=== PATIENT | female | born 1995 | race Caucasian/White ===

== ENCOUNTER 2017-06-20 02:12 | Inpatient (IN) | payer BC ==
[2017-06-20 03:18] LABS: Hematocrit 44 % (35-47); Hemoglobin 14.5 g/dl (12.0-16.0); Mean Corpuscular HGB Conc 33 g/dl (31-36); Mean Corpuscular Hemoglobin 30 pg (27-31); Mean Corpuscular Volume 89 fL (80-97); Mean Platelet Volume 7 um3 (7.4-10.4); Red Blood Count 4.91 10^6/ul (4.0-5.4); Red Cell Distribution Width 12 % (10.5-15); White Blood Count 9.4 10^3/ul (3.5-10.8)
[2017-06-20 03:27] LABS: Urine Bacteria Absent (Absent); Urine Bilirubin Negative (Negative); Urine Glucose Negative (Negative); Urine Nitrite Negative (Negative)
[2017-06-20 03:37] LABS: ALT 7 U/L (7-52); AST 16 U/L (13-39); Albumin 4.4 g/dL (3.2-5.2); Alkaline Phosphatase 40 U/L (34-104); Anion Gap 9 mmol/L (2-11); BUN/Creatinine Ratio 16.1 (8-20); Blood Urea Nitrogen 9 mg/dL (6-24); CO2 Carbon Dioxide 21 mmol/L (22-32); Chloride 109 mmol/L (101-111); EGFR African American 172.5 (>60); EGFR Non-African American 134.2 (>60); Globulin 2.9 g/dL (2-4); Glucose 91 mg/dL (70-100); Potassium 3.9 mmol/L (3.5-5.0); Sodium 139 mmol/L (133-145); Total Protein 7.3 g/dL (6.4-8.9)
[2017-06-20 03:40] LABS: Benzodiazepine Urine Screen None Detected (None Detect)
[2017-06-20 03:42] LABS: Acetaminophen < 15 mcg/mL; Alcohol 102 mg/dL (<10); Salicylate < 2.50 mg/dL (<30)
[2017-06-20 03:53] LABS: TSH (Thyroid Stimulating Horm) 1.15 mcIU/mL (0.34-5.60)
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
[2017-06-20] MEDS ORDERED: Acetaminophen TAB* 325 MG PO PRN (08:37)
[2017-06-20] MEDS ORDERED: Al Hydrox/Mg Hydrox/Simet LIQ* 30 ML UDC PO PRN (08:37)
[2017-06-20] MEDS ORDERED: BuPROPion XL* 150 MG TAB.XL PO SCH (09:00)
[2017-06-20] MEDS: Omeprazole CAP* 20 MG PO SCH (09:33)
[2017-06-20] MEDS: Vitamin THERAPEUTIC TAB PO SCH (09:33)
[2017-06-20] MEDS: LEVONORGESTREL ETH ESTRAD PO SCH (14:27)
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
[2017-06-21] MEDS: LEVONORGESTREL ETH ESTRAD PO SCH (07:55)
[2017-06-21] MEDS: Vitamin THERAPEUTIC TAB PO SCH (07:55)
[2017-06-21] MEDS: Omeprazole CAP* 20 MG PO SCH (07:56)
[2017-06-21] MEDS: Sucralfate TAB* 1 GM PO PRN ×2 (07:58→16:13)
[2017-06-21] MEDS ORDERED: BuPROPion XL* 150 MG TAB.XL PO SCH (09:00)
--- NOTE | 2017-06-21 15:10 | PN ---
Subjective - Subjective Subjective: Torie endorses reduced distress level, improving mood, some difficulty staying asleep last night. She continues to have difficulty eating, has been drinking Ensure; she agrees to trying Zofran 1 hour before meal, new trial of Mirtazapine and gradual discontinuation of the Buproprion. She describes positive interactions with bother and father. She remains anxious about the legal implications of her DUI. She expresses interest in referral for outpatient substance abuse treatment. Per staff, she is adherent to unit's routines. Objective - Appearance Appearance: Healthy Appearing Dysmorphic Features: No Hygiene: Normal Grooming: Well Kept - Behavior Psychomotor Activities: Normal Exhibits Abnormal Movement: No - Attitude and Relatedness Attitude and Relatedness: Cooperative Eye Contact: Fair - Speech Quality: Unpressured Latencies: Normal Quantity: Appropriate - Mood Patient's Decription of Mood: better - Affect Observed Affect: Constricted Affect Consistent with: Dysphoria - Thought Process Patient's Thought Process: Coherent, Goal Directed Thought Content: No Passive Wish, No Suicidal Planning, No Homicidal Ideation, No Paranoid Ideation - Sensorium Experiencing Hallucinations: No, Sensorium is Clear - Level of Consciousness Level of Consciousness: Alert Orientation: Yes Intact - Impulse Control Impulse Control: Intact - Insight and Judgement Insight and Judgement: Fair - Group Participation Particating in Group Activities: Yes - Medication Management Medication Management Adherence: Yes Assessment - Assessment Merits Inpatient Hospitalization: For Ongoing Evaluation, Consolidate Improvements, For Discharge Planning Inpatient DSM-IV Dx: Alcohol-cannabis use disorder; Cluster B traits. Clinical Impression: Adjusting well to this setting, with lower distress level, improving mood, denying suicidality, consented to new trial of Remeron and to discontinuation of the Buproprion. She needs continue admission for stabilization. Plan - Plan Treatment Plan: Name: TORIE CARDONA Birthdate: 1995 [id number] Medications: Current Medications Acetaminophen (Tylenol Tab*) 650 mg PO Q4H PRN PRN Reason: PAIN or TEMP > 101 F Al Hydrox/Mg Hydrox/Simethicone (Maalox Plus*) 30 ml PO Q4H PRN PRN Reason: INDIGESTION Levonorgestrel (Quasense (Nf)) 1 tab PO DAILY [facility] Last Admin: 06/21/17 07:55 Dose: 1 tab Mirtazapine (Remeron Tab*) 15 mg PO BEDTIME [facility] Multivitamins (Theragran Tab*) 1 tab PO DAILY [facility] Last Admin: 06/21/17 07:55 Dose: 1 tab Omeprazole (Prilosec Cap*) 20 mg PO DAILY [facility] Last Admin: 06/21/17 07:56 Dose: 20 mg Ondansetron HCl (Zofran Tab*) 4 mg PO Q6H PRN PRN Reason: NAUSEA Sucralfate (Carafate*) 1 gm PO QID PRN PRN Reason: HEARTBURN Last Admin: 06/21/17 07:58 Dose: 1 gm - Discharge Plan Discharge Plan: Drug/Alcohol Rehab Outpatient Program: TBD
[2017-06-21] MEDS: Ondansetron TAB* 4 MG PO PRN (16:13)
[2017-06-21] MEDS: Mirtazapine TAB* 15 MG PO SCH (21:01)
[2017-06-22] MEDS ORDERED: buPROPion TAB* 75 MG PO SCH (09:00)
[2017-06-22] MEDS: Omeprazole CAP* 20 MG PO SCH (09:17)
[2017-06-22] MEDS: Vitamin THERAPEUTIC TAB PO SCH (09:17)
[2017-06-22] MEDS: Sucralfate TAB* 1 GM PO PRN (09:17)
[2017-06-22] MEDS: LEVONORGESTREL ETH ESTRAD PO SCH (09:18)
--- NOTE | 2017-06-22 12:21 | PN ---
Subjective - Subjective Subjective: Torie endorses improvements in her sleep and mood, she denies alcohol withdrawal symptoms, suicidal ideation, urges for sib or side effects from prescribed medication. She continues to not be able to eat solid foods despite Zofran prn and Remeron. She describes continued positive interactions with relatives. MMPI shows elevations on the neurotic triad and paranoia scale. Per staff, she is adherent to unit's routines. Objective - Appearance Appearance: Thin Framed Dysmorphic Features: No Hygiene: Normal Grooming: Well Kept - Behavior Psychomotor Activities: Normal Exhibits Abnormal Movement: No - Attitude and Relatedness Attitude and Relatedness: Superficially Cooperative - Speech Quality: Unpressured Latencies: Normal Quantity: Appropriate - Mood Patient's Decription of Mood: better - Affect Observed Affect: Constricted Affect Consistent with: Dysphoria - Thought Process Patient's Thought Process: Coherent, Goal Directed Thought Content: No Passive Wish, No Suicidal Planning, No Homicidal Ideation, No Paranoid Ideation - Sensorium Experiencing Hallucinations: No, Sensorium is Clear - Level of Consciousness Level of Consciousness: Alert Orientation: Yes Intact - Impulse Control Impulse Control: Intact - Insight and Judgement Insight and Judgement: Poor - Group Participation Particating in Group Activities: Yes - Medication Management Medication Management Adherence: Yes Assessment - Assessment Merits Inpatient Hospitalization: Consolidate Improvements, For Discharge Planning Inpatient DSM-IV Dx: Major depressive disorder, recurrent, moderate, w/o psychotic features; Alcohol-cannabis use disorder; Cluster B traits. Clinical Impression: Reporting lower distress level, improving sleep and mood, denying suicidality, tolerating trial of Remeron and discontinuation of the Buproprion. She needs continue admission for stabilization. Plan - Plan Treatment Plan: Name: TORIE CARDONA Birthdate: 1995 [id number] Medications: Current Medications Acetaminophen (Tylenol Tab*) 650 mg PO Q4H PRN PRN Reason: PAIN or TEMP > 101 F Al Hydrox/Mg Hydrox/Simethicone (Maalox Plus*) 30 ml PO Q4H PRN PRN Reason: INDIGESTION Bupropion HCl (Wellbutrin Tab*) 75 mg PO DAILY [facility] Last Admin: 06/22/17 09:17 Dose: 75 mg Levonorgestrel (Quasense (Nf)) 1 tab PO DAILY [facility] Last Admin: 06/22/17 09:18 Dose: 1 tab Mirtazapine (Remeron Tab*) 15 mg PO BEDTIME [facility] Last Admin: 06/21/17 21:01 Dose: 15 mg Multivitamins (Theragran Tab*) 1 tab PO DAILY [facility] Last Admin: 06/22/17 09:17 Dose: 1 tab Omeprazole (Prilosec Cap*) 20 mg PO DAILY [facility] Last Admin: 06/22/17 09:17 Dose: 20 mg Ondansetron HCl (Zofran Tab*) 4 mg PO Q6H PRN PRN Reason: NAUSEA Last Admin: 06/21/17 16:13 Dose: 4 mg Sucralfate (Carafate*) 1 gm PO QID PRN PRN Reason: HEARTBURN Last Admin: 06/22/17 09:17 Dose: 1 gm - Discharge Plan Discharge Plan: Drug/Alcohol Rehab Outpatient Program: [facility]
--- NOTE | 2017-06-22 13:14 | PN ---
[facility]: Group Therapy Note - Service Type Service Type: [id number] Group Psychotherapy - Cognitive Behavioral Group Therapy ( CBT):Patient was attentive and participatory in CBT programming this morning, and remained in good behavioral control. Patient expressed positive insights regarding relevant treatment interventions and goals.
[2017-06-22] MEDS: Ondansetron TAB* 4 MG PO PRN (16:14)
[2017-06-22] MEDS: Mirtazapine TAB* 15 MG PO SCH (21:13)
[2017-06-23] MEDS: Omeprazole CAP* 20 MG PO SCH (08:35)
[2017-06-23] MEDS: Vitamin THERAPEUTIC TAB PO SCH (08:35)
[2017-06-23] MEDS: Ondansetron TAB* 4 MG PO PRN ×2 (08:35→17:16)
[2017-06-23] MEDS: LEVONORGESTREL ETH ESTRAD PO SCH (08:35)
[2017-06-23] MEDS: Sucralfate TAB* 1 GM PO PRN ×2 (08:37→21:24)
--- NOTE | 2017-06-23 12:38 | PN ---
Subjective - Subjective Subjective: Torie complains of poor sleep last night and feeling tired, irritable and depressed today. She expresses irritation that her mother brought the wrong type of clothes and has been requesting a family meeting. She was able to eat pear and apple pie yesterday, continues to feel nauseous after eating but has not thrown up. She denies alcohol withdrawal symptoms, suicidal ideation, urges for sib or side effects from prescribed medication. She remains motivated for outpatient psychiatric treatment but now seems to minimize her issues with substances or the need for outpatient treatment. Per staff, she is adherent to unit's routines. Objective - Appearance Appearance: Healthy Appearing Dysmorphic Features: No Hygiene: Normal Grooming: Well Kept - Behavior Psychomotor Activities: Normal Exhibits Abnormal Movement: No - Attitude and Relatedness Attitude and Relatedness: Cooperative Eye Contact: Fair - Speech Quality: Unpressured Latencies: Normal Quantity: Appropriate - Mood Patient's Decription of Mood: "Irritable" - Affect Observed Affect: Non-labile Affect Consistent with: Dysphoria - Thought Process Patient's Thought Process: Coherent, Goal Directed Thought Content: No Passive Wish, No Suicidal Planning, No Homicidal Ideation, No Paranoid Ideation - Sensorium Experiencing Hallucinations: No, Sensorium is Clear - Level of Consciousness Level of Consciousness: Alert Orientation: Yes Intact - Impulse Control Impulse Control: Intact - Insight and Judgement Insight and Judgement: Poor - Group Participation Particating in Group Activities: Yes - Medication Management Medication Management Adherence: Yes Assessment - Assessment Merits Inpatient Hospitalization: Consolidate Improvements, For Discharge Planning Inpatient DSM-IV Dx: Major depressive disorder, recurrent, moderate, w/o psychotic features; Alcohol-cannabis use disorder; Cluster B traits. Clinical Impression: Uneven course here, denying suicidality, tolerating trial of Remeron and discontinuation of the Buproprion. She needs continue admission for stabilization. Plan - Plan Treatment Plan: Name: TORIE CARDONA Birthdate: 1995 [id number] Medications: Current Medications Acetaminophen (Tylenol Tab*) 650 mg PO Q4H PRN PRN Reason: PAIN or TEMP > 101 F Al Hydrox/Mg Hydrox/Simethicone (Maalox Plus*) 30 ml PO Q4H PRN PRN Reason: INDIGESTION Levonorgestrel (Quasense (Nf)) 1 tab PO DAILY [facility] Last Admin: 06/23/17 08:35 Dose: 1 tab Mirtazapine (Remeron Tab*) 15 mg PO BEDTIME [facility] Last Admin: 06/22/17 21:13 Dose: 15 mg Multivitamins (Theragran Tab*) 1 tab PO DAILY [facility] Last Admin: 06/23/17 08:35 Dose: 1 tab Omeprazole (Prilosec Cap*) 20 mg PO DAILY [facility] Last Admin: 06/23/17 08:35 Dose: 20 mg Ondansetron HCl (Zofran Tab*) 4 mg PO Q6H PRN PRN Reason: NAUSEA Last Admin: 06/23/17 08:35 Dose: 4 mg Sucralfate (Carafate*) 1 gm PO QID PRN PRN Reason: HEARTBURN Last Admin: 06/23/17 08:37 Dose: 1 gm - Discharge Plan Discharge Plan: Outpatient Follow Up Outpatient Program: [facility]
--- NOTE | 2017-06-23 13:11 | PN ---
MHU: Group Therapy Note - Service Type Service Type: [id number] Group Psychotherapy - Cognitive Behavioral Group Therapy ( CBT):Patient was attentive and participatory in CBT programming this morning, and remained in good behavioral control. Patient expressed positive insights regarding relevant treatment interventions and goals.
[2017-06-23] MEDS: Mirtazapine TAB* 15 MG PO SCH (21:22)
[2017-06-24] MEDS: Vitamin THERAPEUTIC TAB PO SCH (09:54)
[2017-06-24] MEDS: Omeprazole CAP* 20 MG PO SCH (09:54)
[2017-06-24] MEDS: LEVONORGESTREL ETH ESTRAD PO SCH (09:54)
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
[2017-06-24] MEDS: Sucralfate TAB* 1 GM PO PRN (16:13)
[2017-06-24] MEDS: Ondansetron TAB* 4 MG PO PRN (16:13)
[2017-06-24] MEDS: Mirtazapine TAB* 15 MG PO SCH (22:10)
[2017-06-25] MEDS: Sucralfate TAB* 1 GM PO PRN ×4 (08:01→21:56)
[2017-06-25] MEDS: Vitamin THERAPEUTIC TAB PO SCH (08:02)
[2017-06-25] MEDS: LEVONORGESTREL ETH ESTRAD PO SCH (08:02)
[2017-06-25] MEDS: Omeprazole CAP* 20 MG PO SCH (08:02)
[2017-06-25] MEDS: Ondansetron TAB* 4 MG PO PRN ×2 (08:03→16:59)
--- NOTE | 2017-06-25 13:57 | PN ---
MHU: Group Therapy Note - Service Type Service Type: [id number] Group Psychotherapy - Cognitive Behavioral Group Therapy ( CBT):Patient was attentive and participatory in CBT programming this morning, and remained in good behavioral control. Patient expressed positive insights regarding relevant treatment interventions and goals.
--- NOTE | 2017-06-25 17:46 | PN ---
Subjective - Subjective Subjective: Presents with brighter affect, smiles easily, endorses improving mood, restful sleep, denies drug withdrawal symptoms or side effects from prescribed meds. Per staff, she is visible in the milieu and engaged in programing. In family meeting changes her mind about door to door transfer to rehab and demands immediate discharge home. Was overheard crying loudly, told parents she felt like punching a wall. Objective - Appearance Appearance: Thin Framed Dysmorphic Features: No Hygiene: Normal Grooming: Well Kept - Behavior Motor Skills: Fine Motor Skills: Normal, Gross Motor Skills: Normal, Gait: Normal Psychomotor Activities: Normal Exhibits Abnormal Movement: No - Attitude and Relatedness Attitude and Relatedness: Superficially Cooperative Eye Contact: Fair - Speech Quality: Unpressured Latencies: Normal Quantity: Terse - Mood Patient's Decription of Mood: "Okay" - Affect Observed Affect: Fair Affect Consistent with: Euthymia - Thought Process Patient's Thought Process: Coherent, Goal Directed Thought Content: No Passive Wish, No Suicidal Planning, No Homicidal Ideation, No Paranoid Ideation - Sensorium Delusions: No Experiencing Hallucinations: No, Sensorium is Clear - Level of Consciousness Level of Consciousness: Alert Orientation: Yes Intact - Impulse Control Impulse Control: Intact - Insight and Judgement Insight and Judgement: Poor Assessment - Assessment Merits Inpatient Hospitalization: Consolidate Improvements, For Discharge Planning Inpatient DSM-IV Dx: Major depressive disorder, recurrent, moderate, w/o psychotic features; Alcohol-cannabis use disorder; Cluster B traits. Plan - Treatment Plan Level of Observation: 15 Minute Checks, Full Code Status Medications: Current Medications Acetaminophen (Tylenol Tab*) 650 mg PO Q4H PRN PRN Reason: PAIN or TEMP > 101 F Al Hydrox/Mg Hydrox/Simethicone (Maalox Plus*) 30 ml PO Q4H PRN PRN Reason: INDIGESTION Levonorgestrel (Quasense (Nf)) 1 tab PO DAILY [facility] Last Admin: 06/25/17 08:02 Dose: 1 tab Mirtazapine (Remeron Tab*) 30 mg PO BEDTIME [facility] Last Admin: 06/24/17 22:10 Dose: 30 mg Multivitamins (Theragran Tab*) 1 tab PO DAILY [facility] Last Admin: 06/25/17 08:02 Dose: 1 tab Omeprazole (Prilosec Cap*) 20 mg PO DAILY [facility] Last Admin: 06/25/17 08:02 Dose: 20 mg Ondansetron HCl (Zofran Tab*) 4 mg PO Q6H PRN PRN Reason: NAUSEA Last Admin: 06/25/17 16:59 Dose: 4 mg Sucralfate (Carafate*) 1 gm PO QID PRN PRN Reason: HEARTBURN Last Admin: 06/25/17 16:59 Dose: 1 gm - Discharge Plan Discharge Plan: Drug/Alcohol Rehab
--- NOTE | 2017-06-25 17:49 | PN ---
Subjective - Subjective Subjective: Presents with brighter affect, smiles easily, endorses improving mood, restful sleep, denies drug withdrawal symptoms or side effects from prescribed meds. Per staff, she is visible in the milieu and engaged in programing. In family meeting changes her mind about door to door transfer to rehab and demands immediate discharge home. Was overheard crying loudly, told parents she felt like punching a wall. Objective - Appearance Appearance: Thin Framed Dysmorphic Features: No Hygiene: Normal Grooming: Well Kept - Behavior Psychomotor Activities: Normal Exhibits Abnormal Movement: No - Attitude and Relatedness Attitude and Relatedness: Superficially Cooperative Eye Contact: Fair - Speech Quality: Unpressured Latencies: Normal Quantity: Appropriate - Mood Patient's Decription of Mood: "Okay" - Affect Observed Affect: Fair Affect Consistent with: Euthymia - Thought Process Patient's Thought Process: Coherent, Goal Directed Thought Content: No Passive Wish, No Suicidal Planning, No Homicidal Ideation, No Paranoid Ideation - Sensorium Experiencing Hallucinations: No, Sensorium is Clear - Level of Consciousness Level of Consciousness: Alert Orientation: Yes Intact - Impulse Control Impulse Control: Intact - Insight and Judgement Insight and Judgement: Poor - Group Participation Particating in Group Activities: Yes - Medication Management Medication Management Adherence: Yes Assessment - Assessment Merits Inpatient Hospitalization: Consolidate Improvements, For Discharge Planning Inpatient DSM-IV Dx: Major depressive disorder, recurrent, moderate, w/o psychotic features; Alcohol-cannabis use disorder; Cluster B traits. Clinical Impression: Stabilizing in this structured setting, has progressed well through alcohol detox, tolerating trial of Remeron with improved sleep and appetite, now ambivalent about inpatient rehab. I suspect some craving for alcohol and drugs. Patient would be at high risk for relapse on alcohol and drugs if discharged. Plan - Plan Treatment Plan: Name: SERGIO CARDONA Birthdate: 1995 [id number] Medications: Current Medications Acetaminophen (Tylenol Tab*) 650 mg PO Q4H PRN PRN Reason: PAIN or TEMP > 101 F Al Hydrox/Mg Hydrox/Simethicone (Maalox Plus*) 30 ml PO Q4H PRN PRN Reason: INDIGESTION Levonorgestrel (Quasense (Nf)) 1 tab PO DAILY [facility] Last Admin: 06/25/17 08:02 Dose: 1 tab Mirtazapine (Remeron Tab*) 30 mg PO BEDTIME [facility] Last Admin: 06/24/17 22:10 Dose: 30 mg Multivitamins (Theragran Tab*) 1 tab PO DAILY [facility] Last Admin: 06/25/17 08:02 Dose: 1 tab Omeprazole (Prilosec Cap*) 20 mg PO DAILY [facility] Last Admin: 06/25/17 08:02 Dose: 20 mg Ondansetron HCl (Zofran Tab*) 4 mg PO Q6H PRN PRN Reason: NAUSEA Last Admin: 06/25/17 16:59 Dose: 4 mg Sucralfate (Carafate*) 1 gm PO QID PRN PRN Reason: HEARTBURN Last Admin: 06/25/17 16:59 Dose: 1 gm - Discharge Plan Discharge Plan: Drug/Alcohol Rehab Outpatient Program: [facility]
[2017-06-25] MEDS: Mirtazapine TAB* 15 MG PO SCH (21:55)
[2017-06-26] MEDS: Sucralfate TAB* 1 GM PO PRN ×2 (07:27→14:43)
[2017-06-26] MEDS: LEVONORGESTREL ETH ESTRAD PO SCH (09:02)
[2017-06-26] MEDS: Omeprazole CAP* 20 MG PO SCH (09:03)
[2017-06-26] MEDS: Vitamin THERAPEUTIC TAB PO SCH (09:03)
[2017-06-26] MEDS: Ondansetron TAB* 4 MG PO PRN (14:20)
[2017-06-26] MEDS: Mirtazapine TAB* 15 MG PO SCH (21:31)
[2017-06-27] MEDS: Omeprazole CAP* 20 MG PO SCH (09:40)
[2017-06-27] MEDS: Vitamin THERAPEUTIC TAB PO SCH (09:40)
[2017-06-27] MEDS: Sucralfate TAB* 1 GM PO PRN ×3 (09:40→16:09)
[2017-06-27] MEDS: LEVONORGESTREL ETH ESTRAD PO SCH (09:40)
[2017-06-27] MEDS: Ondansetron TAB* 4 MG PO PRN ×2 (11:57→17:36)
[2017-06-27] MEDS: Mirtazapine TAB* 15 MG PO SCH (21:40)
[2017-06-28] MEDS: Omeprazole CAP* 20 MG PO SCH ×2 (12:29→13:08)
[2017-06-28] MEDS: LEVONORGESTREL ETH ESTRAD PO SCH ×2 (12:29→13:09)
[2017-06-28] MEDS: Vitamin THERAPEUTIC TAB PO SCH ×2 (12:30→13:09)
[2017-06-28] MEDS: Ondansetron TAB* 4 MG PO PRN (16:58)
--- NOTE | 2017-06-28 17:06 | PN ---
Subjective - Subjective Subjective: Torie describes "a boring weekend!," endorses sustained improvement in mood and sleep but continued difficulty with eating. She accepts feedback that endoscopic studies would have be be done with a referral from her PCP and on an outpatient basis. She appears to leverage the fact that "she cannot eat normally " as a reason preempting her from going to inpatient rehab. She also complains about having never met the quality assurance inspector, nurse notes indicates she has has 4 meetings with the quality assurance inspector since admission. Per staff, she is adherent to unit's routines. Objective - Appearance Appearance: Healthy Appearing Dysmorphic Features: No Hygiene: Normal Grooming: Well Kept - Behavior Psychomotor Activities: Normal Exhibits Abnormal Movement: No - Attitude and Relatedness Attitude and Relatedness: Superficially Cooperative Eye Contact: Fair - Speech Quality: Unpressured Latencies: Normal Quantity: Appropriate - Mood Patient's Decription of Mood: "Okay" - Affect Observed Affect: Fair Affect Consistent with: Euthymia - Thought Process Patient's Thought Process: Coherent, Goal Directed Thought Content: No Passive Wish, No Suicidal Planning, No Homicidal Ideation, No Paranoid Ideation - Sensorium Experiencing Hallucinations: No, Sensorium is Clear - Level of Consciousness Level of Consciousness: Alert Orientation: Yes Intact - Impulse Control Impulse Control: Intact - Insight and Judgement Insight and Judgement: Poor - Group Participation Particating in Group Activities: Yes - Medication Management Medication Management Adherence: Yes Assessment - Assessment Merits Inpatient Hospitalization: Consolidate Improvements, For Discharge Planning Inpatient DSM-IV Dx: Major depressive disorder, recurrent, moderate, w/o psychotic features; Alcohol-cannabis use disorder; Cluster B traits. Clinical Impression: Stabilizing in this structured setting, has progressed well through alcohol detox, tolerating trial of Remeron with improved sleep and appetite, now ambivalent about inpatient rehab. Patient would be at high risk for relapse on alcohol and drugs if discharged. Plan - Plan Treatment Plan: Name: TORIE CARDONA Birthdate: 1995 [id number] Medications: Current Medications Acetaminophen (Tylenol Tab*) 650 mg PO Q4H PRN PRN Reason: PAIN or TEMP > 101 F Al Hydrox/Mg Hydrox/Simethicone (Maalox Plus*) 30 ml PO Q4H PRN PRN Reason: INDIGESTION Levonorgestrel (Quasense (Nf)) 1 tab PO DAILY [facility] Last Admin: 06/28/17 13:09 Dose: 1 tab Mirtazapine (Remeron Tab*) 30 mg PO BEDTIME [facility] Last Admin: 06/27/17 21:40 Dose: 30 mg Multivitamins (Theragran Tab*) 1 tab PO DAILY [facility] Last Admin: 06/28/17 13:09 Dose: 1 tab Omeprazole (Prilosec Cap*) 20 mg PO DAILY [facility] Last Admin: 06/28/17 13:08 Dose: 20 mg Ondansetron HCl (Zofran Tab*) 4 mg PO Q6H PRN PRN Reason: NAUSEA Last Admin: 06/28/17 16:58 Dose: 4 mg Sucralfate (Carafate*) 1 gm PO QID PRN PRN Reason: HEARTBURN Last Admin: 06/27/17 16:09 Dose: 1 gm - Discharge Plan Discharge Plan: Drug/Alcohol Rehab Outpatient Program: TBD
[2017-06-28] MEDS: Mirtazapine TAB* 15 MG PO SCH (22:17)
[2017-06-29] MEDS: Omeprazole CAP* 20 MG PO SCH (10:24)
[2017-06-29] MEDS: LEVONORGESTREL ETH ESTRAD PO SCH (10:24)
[2017-06-29] MEDS: Ondansetron TAB* 4 MG PO PRN ×2 (10:24→17:01)
[2017-06-29] MEDS: Vitamin THERAPEUTIC TAB PO SCH (10:24)
[2017-06-29] MEDS: Mirtazapine TAB* 15 MG PO SCH (21:44)
[2017-06-30 07:55] VITALS: BP 123/66
[2017-06-30] MEDS: Omeprazole CAP* 20 MG PO SCH (09:33)
[2017-06-30] MEDS: Vitamin THERAPEUTIC TAB PO SCH (09:33)
[2017-06-30] MEDS: LEVONORGESTREL ETH ESTRAD PO SCH (09:34)
--- NOTE | 2017-06-30 11:56 | PN ---
MHU: Group Therapy Note - Service Type Service Type: [id number] Group Psychotherapy - Cognitive Behavioral Group Therapy ( CBT):Patient was attentive and participatory in CBT programming this morning, and remained in good behavioral control. Patient expressed positive insights regarding relevant treatment interventions and goals.
--- NOTE | 2017-06-30 13:03 | DS ---
Subjective - Subjective Discharge Date: 06/30/17 Subjective: Torie expresses readiness for discharge, reports she is no longer interested in inpatient substance abuse treatment, was only willing to go to mitigate her legal problems. She see her problem with not eating as more of a priority. She affirms she feels safe and good about being alive. She denies emotional pain or unmanageable anxiety. She says the experience has been corrective and that she will abstain from alcohol and drugs and follow recommendations for outpatient substance abuse treatment. She denies problems with medication, and says she does not see obstacles to routine care / therapy, or emergency help if needed again. Objective - Appearance Appearance: Healthy Appearing Dysmorphic Features: No Hygiene: Normal Grooming: Well Kept - Behavior Psychomotor Activities: Normal Exhibits Abnormal Movement: No - Attitude and Relatedness Attitude and Relatedness: Cooperative Eye Contact: Fair - Speech Quality: Unpressured Latencies: Normal Quantity: Appropriate - Mood Patient's Decription of Mood: "Okay" - Affect Observed Affect: Good Affect Consistent with: Euthymia - Thought Process Patient's Thought Process: Coherent, Goal Directed Thought Content: No Passive Wish, No Suicidal Planning, No Homicidal Ideation, No Paranoid Ideation - Sensorium Experiencing Hallucinations: No, Sensorium is Clear - Level of Consciousness Level of Consciousness: Alert Orientation: Yes Intact - Impulse Control Impulse Control: Intact - Insight and Judgement Insight and Judgement: Poor - Group Participation Particating in Group Activities: Yes Treatment Course & Assessment Clinical Course & Impression: SUMMARY: First inpatient psychiatric admission and first formal contact with mental health for this 22-year-old female with history of alcohol and marijuana dependence, who was brought in by police on 9.45 status after she was charged with a DWI and asked to police officers to shoot her. Medical history is remarkable for anorexia of unclear etiology. The patient denies any family history of psychiatric illnesses or completed suicides. She describes stressors of current legal problems, severe financial difficulties, strained relationship with relatives, and remote breakup of relationship. Clear for release: 06/30/17: Torie progressed well through alcohol and cannabis detoxificatio. She stabilized here behaviorally and improved clinically. She was safe on checks, adherent with routines, and free of active suicidal ideation. She was well engaged in programming. Medication management discontinued Wellbutrin and started Remeron to target her difficulties with mood, sleep and appetite. She changed her mind about going to inpatient drug and alcohol rehabilitation program, explaining her problem with not being able to eat was her foremost priority. Risk concern centers on her history of impulvisity, recklessness (in intoxicated states), alcohol use and suicidal behavior. Torie's profile puts her at chronic elevated risk for suicide but at this time acute risk is assessed as low - factors are is tolerable and reduced symptom burden, absence of impairment, and benign observed behavior and ideation. Relapse on alcohol and /or drugs could increase his risk again. Merits Inpatient Hospitalization: No Clear for Discharge: Adequate Clinical Respons, Acceptable Safety Profile Inpatient DSM-IV Dx: Major depressive disorder, recurrent, moderate, w/o psychotic features; Alcohol-cannabis use disorder; Cluster B traits. Discharge Planning - Discharge Planning Discharge Plan: Outpatient Follow Up Outpatient Program: [facility] Recommendations for Continuing Care: Medication Management, Psychotherapy, Substance Abuse Counseling Medications: Discharge Medications Mirtazapine (Remeron Tab*) 30 mg PO BEDTIME FOR DEPRESSION; Omeprazole (Prilosec Cap*) 20 mg PO DAILY FOR DYSPEPSIA; Ondansetron HCl (Zofran Tab*) 4 mg PO Q6H PRN FOR NAUSEA; Sucralfate (Carafate*) 1 gm PO QID PRN FOR DYSPEPSIA. Discharge Planning: Prescriptions provided for discharge [X] Yes [] No Follow up care details as per social work arrangements. Patient response to discharge plan: [X] eager for discharge [] agreeable with discharge plan [] ambivalent about discharge [] disagrees with discharge today Follow-up TORIE CARDONA has been referred to the following clinics/specialists for follow-up care: [facility] [address] [place] [phone] You have an intake [facility] [address] [place] [address] You have an intake
[2017-06-30] MEDS: Ondansetron TAB* 4 MG PO PRN (17:21)
== END 2017-06-30 18:15 | disposition home or self-care (01) | DRG 751 ==
LOC: ED 02:12 → BSU 07:35
PROVIDERS: ADMIT Psychiatry & Neurology Psychiatry; ATTEND Psychiatry & Neurology Psychiatry
PROC: GZHZZZZ Group Psychotherapy (ICD-10-PCS; principal; 2017-06-22)
DX: F33.9 Major depressive disorder, recurrent, unspecified (principal); R45.851 Suicidal ideations; F10.20 Alcohol dependence, uncomplicated; F12.20 Cannabis dependence, uncomplicated; Y90.5 Blood alcohol level of 100-119 mg/100 ml; R63.0 Anorexia; Z81.8 Family history of other mental and behavioral disorders; Z91.410 Personal history of adult physical and sexual abuse; Z68.21 Body mass index [BMI] 21.0-21.9, adult
CPT/HCPCS: 36415; 80053; 80307; 80320; 80329; 81003; 81015; 84443; 84702; 85025; 87086; 90853; 99222; 99231; 99238; A9270-GY; G0480

== ENCOUNTER 2017-11-03 19:01 | Emergency (ER) | payer BC, MEDICAID ==
[2017-11-03 19:24] VITALS: BP 112/61
--- NOTE | 2017-11-03 20:19 | UC ---
Ear Complaint HPI - HPI Summary HPI Summary: 22 year old female here with left ear pain that started 3 days ago. She reports URI symptoms with cough and rhinorrhea for over two weeks. Now she developed bilateral ear pain, L>right with decreased hearing. She denies any n/v/d or discharge from the ear. - History of Current Complaint Chief Complaint: UCEar Stated Complaint: EARS CLOGGED Time Seen by Provider: 11/03/17 19:59 Hx Obtained From: Patient Hx Last Menstrual Period: now Onset/Duration: Gradual Onset Severity Initially: Mild Severity Currently: Mild Aggravating Factors: Nothing Alleviating Factors: Nothing Associated Signs/Symptoms: Negative: Discharge, Hearing Loss, Trauma to Ear - Allergies/Home Medications Allergies/Adverse Reactions: Allergies Allergy/AdvReac Type Severity Reaction Status Date / Time No Known Allergies Allergy Verified 11/03/17 19:25 Home Medications: Home Medications FLUoxetine CAP* [Prozac CAP*] 30 mg PO DAILY 11/03/17 [History Confirmed ] PMH/Surg Hx/FS Hx/Imm Hx - Surgical History Surgical History: Yes Surgery Procedure, Year, and Place: Bialteral heel lengthening surgery 2005 - Family History Known Family History: Positive: Other - Bipolar mother - Social History Alcohol Use: Occasionally Substance Use Type: None Substance Use Comment - Amount & Last Used: Uses it daily. Last used 2016 at 2200. Smoking Status (MU): Never Smoked Tobacco - Immunization History Most Recent Influenza Vaccination: Pt states [id number] season Most Recent Pneumonia Vaccination: Pt states up to date Review of Systems Constitutional: Negative Skin: Negative Eyes: Negative ENT: Ear Ache, Nasal Discharge, Sinus Congestion Respiratory: Negative Cardiovascular: Negative Gastrointestinal: Negative Genitourinary: Negative Motor: Negative Neurovascular: Negative Musculoskeletal: Negative Neurological: Negative Psychological: Negative All Other Systems Reviewed And Are Negative: Yes Physical Exam Triage Information Reviewed: Yes Appearance: Well-Appearing, No Pain Distress, Well-Nourished Vital Signs: Initial Vital Signs Temp 36.8 C 11/03/17 19:20 Pulse 86 11/03/17 19:20 Resp 20 11/03/17 19:20 BP 112/61 11/03/17 19:20 Pulse Ox 100 11/03/17 19:20 Eye Exam: Normal ENT: Positive: Pharynx normal, TM red, Other - cloudy TM bilateral Neck: Positive: Supple Respiratory: Positive: Chest non-tender, Lungs clear, Normal breath sounds, No respiratory distress Cardiovascular: Positive: RRR, No Murmur Abdomen Description: Positive: Nontender, No Organomegaly, Soft Ear Complaint Course/Dx - Course Course Of Treatment: Otitis media - Differential Dx/Diagnosis Differential Diagnosis/HQI/PQRI: Otitis Media, Pharyngitis Provider Diagnoses: Otitis media Discharge - Discharge Plan Condition: Good Disposition: HOME Prescriptions: Amoxicillin/Clavulanate TAB* [Augmentin TAB 875*] 875 mg PO BID #20 tab Patient Education Materials: Otitis Media (ED) Referrals: Kunal Sommers MD [Primary Care Provider] -
[2017-11-03] MEDS ORDERED: Amoxicillin/Clavulanate TAB* 875 MG PO ONE (20:23)
[2017-11-03] MEDS ORDERED: Amoxicillin/Clavulanate TAB* 875 MG ONE (20:23)
[2017-11-03] MEDS ORDERED: Amoxicillin/Clavulanate TAB* 875 MG PO SCH (21:00)
== END 2017-11-03 20:30 | disposition home or self-care (01) ==
LOC: UCEAST 19:01
DX: H66.93 Otitis media, unspecified, bilateral (principal); R05 Cough; J34.89 Other specified disorders of nose and nasal sinuses
CPT/HCPCS: 99212; A9270-GY; G0463